=== PATIENT | male | born 1985 | race Two or more races ===

== ENCOUNTER 2017-02-07 14:02 | Emergency (ER) | payer MEDICAID ==
[~2017-02-07] VITALS: Ht 175.3 cm; Wt 78.5 kg
--- NOTE | 2017-02-07 14:04 | NUR ---
PT MELINDA FROM THE STREETS TO ER BED 14. PER REPORT, ALTERED, AROUSABLE BUT GETS AGITATED. STABLE VITALS W/ BLOOD SUGAR 110. PLACED ON MONITOR. AWAITING MD BRASHER.
[2017-02-07 14:20] LABS: BASOPHILS # (AUTO) 0.2 /CMM (0.0-0.2); BASOPHILS % (AUTO) 1.1 % (0.0-2.0); EOSINOPHILS # (AUTO) 0.1 /CMM (0.0-0.7); EOSINOPHILS % (AUTO) 0.3 % (0.0-6.0); HEMATOCRIT 52 % (39-51); HEMOGLOBIN 13.5 g/dL (13.5-17.5); LYMPHOCYTES # (AUTO) 2.3 /CMM (0.8-4.8); LYMPHOCYTES % (AUTO) 13.4 % (20.0-44.0); MEAN CORPUSCULAR HEMOGLOBIN 23 PG (26.0-33.0); MEAN CORPUSCULAR HGB CONC 26 g/dl (31.0-36.0); MEAN CORPUSCULAR VOLUME 90 fL (80-96); MONOCYTES # (AUTO) 0.8 /CMM (0.1-1.30); NEUTROPHILS # (AUTO) 13.6 /CMM (1.8-8.9); NEUTROPHILS % (AUTO) 80.2 % (43.0-81.0); PLATELET COUNT (AUTO) 382 /CMM (150-450); RDW COEFFICIENT OF VARIATION 11.4 (11.5-15.0)
[2017-02-07] MEDS ORDERED: IV NS 0.9% 1,000 ML ONE (14:28)
[2017-02-07] MEDS ORDERED: IV SET PRIMARY 1 EA INFUS.SET MC ONE ×2 (14:28→15:10)
[2017-02-07] MEDS ORDERED: IV NS 0.9% 1,000 ML BAG IV ONE (14:30)
[2017-02-07 14:32] LABS: CALCIUM, SERUM 9.2 mg/dL (8.5-10.1); CARBON DIOXIDE 28 mmol/L (21-32); CHLORIDE 106 mmol/L (98-107); CREATININE 1.3 mg/dL (0.6-1.3); GFR 64 mL/min (>60); GLUCOSE 106 mg/dL (74-106); POTASSIUM 4.1 mmol/L (3.5-5.1); SODIUM SERUM 143 mmol/L (136-145); UREA NITROGEN, BLOOD 23 mg/dL (7-18)
[2017-02-07 14:36] LABS: INR 0.95 (0.87-1.13); PROTHROMBIN TIME 9.9 SECS (9.5-12.7)
[2017-02-07 14:37] LABS: ALANINE AMINOTRANSFERASE 69 U/L (12-78); ALCOHOL, BLOOD < 3 mg/dL (0-0); ALKALINE PHOSPHATASE 77 U/L (46-116); ASPARTATE AMINOTRANSFERASE 36 U/L (15-37); BILIRUBIN,DIRECT 0.1 mg/dL (0.0-0.2); BILIRUBIN,TOTAL 0.7 mg/dL (0.2-1.0); TOTAL PROTEIN, SERUM 7.6 g/dL (6.4-8.2)
[2017-02-07 14:40] LABS: TROPONIN I < 0.017 ng/mL (0.00-0.056)
--- NOTE | 2017-02-07 14:40 | NUR ---
PT TO RADIOLOGY FOR HEAD CT SCAN VIA [facility].
[2017-02-07] MEDS ORDERED: IV NS 0.9% 500 ML IV ONE (15:10)
--- NOTE | 2017-02-07 15:20 | NUR ---
RADIOLOGY AT BEDSIDE FOR CHEST XRAY.
--- NOTE | 2017-02-07 15:29 | NUR ---
PT AWAKE. VERBALLY RESPONSIVE. WANT TO USE THE BATHROOM. PROVIDED W/ URINAL.
[2017-02-07] MEDS ORDERED: HALOPERIDOL LACTATE INJ 5 MG/ML VIAL IV ONE (15:30)
[2017-02-07] MEDS ORDERED: LORAZEPAM INJ 2 MG/ML VIAL IV ONE (15:30)
[2017-02-07] MEDS ORDERED: LORAZEPAM INJ 2 MG/ML VIAL ONE (15:38)
--- NOTE | 2017-02-07 15:44 | NUR ---
PT ANXIOUS. EMOTIONAL AND STATING HE WANTS TO CALL HIS PARTNER. PT IS MEDICATED ORDERED. SEE EMAR.
[2017-02-07 15:52] LABS: APPEARANCE,URINE Clear (CLEAR); BILIRUBIN,URINE Negative (NEGATIVE); BLOOD, URINE Negative Ery/uL (NEGATIVE); COLOR,URINE Yellow (YELLOW); KETONES,URINE Negative (NEGATIVE); LEUKOCYTE ESTERASE ,URINE Negative (NEGATIVE); NITRITE, URINE Negative (NEGATIVE); PH,URINE 6.5 (5.0-8.0); PROTEIN,URINE Negative (NEGATIVE); UGLUCOSE Negative (NEGATIVE)
[2017-02-07 16:06] LABS: CANNABINOID, URINE NEGATIVE (NEGATIVE); PHENCYCLIDINE SCREEN,URINE NEGATIVE (NEGATIVE)
[2017-02-07 16:34] LABS: THYROID STIMULATING HORMONE 0.761 uIU/mL (0.358-3.74)
[2017-02-07 17:11] VITALS: BP 132/84
--- NOTE | 2017-02-07 17:11 | NUR ---
Patient discharged to home in stable condition. Written and verbal after care instructions given. Patient verbalizes understanding of instruction.IV removed. Catheter intact and site benign. Pressure and 4x4 applied to site. No bleeding noted.
== END 2017-02-07 17:12 | disposition home or self-care (01) ==
LOC: ER 14:04
DX: F41.9 Anxiety disorder, unspecified (principal); G93.40 Encephalopathy, unspecified; R79.1 Abnormal coagulation profile
CPT/HCPCS: 36415; 70450; 71010; 80048; 80076; 80305; 81001; 84443; 84484; 85025; 85730; 87086; 93005; 96374; 99285; A4606; G0480; J2060; J7030; J7040; Z7610; 81000-TC